=== PATIENT | male | born 1980 | race African-American/Black ===

== ENCOUNTER → 2023-11-09 | Emergency (ER) | payer MEDICARE, MEDICAID ==
[~2023-11-09] VITALS: Ht 175.3 cm; Wt 74.0 kg
[2023-11-09 06:17] VITALS: BP 146/96; PULSE 80; RESP 16; TEMP 98.2; O2SAT 100
== END | disposition home or self-care (01) ==
LOC: ER 06:15
DX: S49.82XA Other specified injuries of left shoulder and upper arm, initial encounter (principal); W18.39XA Other fall on same level, initial encounter; Y93.89 Activity, other specified; Y92.89 Other specified places as the place of occurrence of the external cause; Y99.8 Other external cause status
CPT/HCPCS: 73030; 99283

== ENCOUNTER 2023-11-12 11:38 | Emergency (ER) | payer MEDICARE, MEDICAID ==
[~2023-11-12] VITALS: Ht 175.3 cm; Wt 70.8 kg
[2023-11-12 11:40] VITALS: BP 133/86; PULSE 118; RESP 16; TEMP 99.4; O2SAT 99
== END 2023-11-12 13:31 | disposition home or self-care (01) ==
LOC: ER 11:38
DX: G35 Multiple sclerosis (principal)
CPT/HCPCS: 99283

== ENCOUNTER 2024-03-13 14:48 | Emergency (ER) | payer MEDICARE, MEDICAID ==
[~2024-03-13] VITALS: Ht 165.1 cm; Wt 70.0 kg
[2024-03-13 14:54] VITALS: BP 146/100; PULSE 98; RESP 18; TEMP 98.4; O2SAT 99
== END 2024-03-13 20:04 | disposition left against medical advice (07) ==
LOC: ER 14:50
DX: R53.1 Weakness (principal); Z53.21 Procedure and treatment not carried out due to patient leaving prior to being seen by health care provider